=== PATIENT | male | born 1945 | race Caucasian/White ===

== ENCOUNTER 2019-08-18 14:36 | Day surgery (SDC) | payer MEDICARE, MEDICAID ==
[2019-08-18] MEDS ORDERED: ONDANSETRON HCL INJ/PF 4 MG/2 ML SDV ONE (15:54)
[2019-08-18] MEDS ORDERED: DIPHENHYDRAMINE HCL 50 MG/ML VIAL ONE (15:54)
[2019-08-18] MEDS ORDERED: FENTANYL CITRATE INJ/PF 100 MCG/2 ML AMPUL ONE (15:55)
[2019-08-18] MEDS ORDERED: EPINEPHRINE INJ 1 MG/10 ML DISP.SYRIN ONE (15:55)
[2019-08-18] MEDS ORDERED: NALOXONE HCL INJ/PF 0.4 MG/1 ML SDV ONE (15:55)
[2019-08-18] MEDS ORDERED: FLUMAZENIL INJ 0.5 MG/5 ML VIAL ONE (15:55)
[2019-08-18] MEDS ORDERED: GLUCAGON,HUMAN RECOMB 1 MG INJ ONE (15:55)
[2019-08-18] MEDS: MIDAZOLAM 2 MG/2 ML INJ ONE ×2 (16:39→16:47)
--- NOTE | 2019-08-18 17:07 | Operative Report ---
Operative Report DATE OF SURGERY: 08/18/19 Operative Report: Pre-op diagnosis: History of reflux and colon polyps Post-op diagnosis: 1. Antral gastritis 2. Sigmoid diverticulum 3. Limited view of the colon Surgery: Upper endoscopy with biopsy and Colonoscopy Medications: Versed 3mg, Fentanyl 100 Mcg IV push Tissue removed: Antral biopsy Procedure: After informed consent obtained from patient, patient's pharynx was sprayed with Hurricane and conscious sedation was achieved. The upper endoscope was then inserted into the esophagus under direct vision and advanced into the stomach and further into the duodenum. Detailed examination of the duodenum, stomach and the esophagus was then performed. A digital rectal examination was performed and this was unremarkable. The colonoscope was inserted into the rectum and advanced to the cecum. The appendiceal orifice and the terminal ileum were both identified. The mucosa was examined into details as the colonoscope was slowly pulled out of the patient. The endoscope was retroflexed in the rectum. Patient tolerated the procedure well. Findings Esophagus: Normal with the Z line at 40 cm Stomach: Mild erythema in the gastric antrum. Duodenum: Normal Cecum: Limited view due to retained stool Ascending colon: Normal Transverse colon: Normal Descending colon: Mildly limited view Sigmoid colon: Single diverticulum noted Rectum: Limited view. Internal hemorrhoids Plan: Repeat colonoscopy with better preparation OPERATION: .
[2019-08-18 18:02] VITALS: BP 116/63
== END 2019-08-18 17:50 | disposition home or self-care (01) ==
LOC: END 14:36
PROVIDERS: ATTEND Internal Medicine Gastroenterology
DX: Z12.11 Encounter for screening for malignant neoplasm of colon (principal); Z86.010 Personal history of colon polyps; K57.30 Diverticulosis of large intestine without perforation or abscess without bleeding; K29.50 Unspecified chronic gastritis without bleeding; K21.9 Gastro-esophageal reflux disease without esophagitis; I10 Essential (primary) hypertension; Z79.82 Long term (current) use of aspirin; Z79.899 Other long term (current) drug therapy; F79 Unspecified intellectual disabilities
CPT/HCPCS: 43239; 45378; 88342 ×2; 88305 ×2; J2250; J3010; J0171; J1200; J1610; J2310; J2405; J3490

== ENCOUNTER 2019-09-15 15:48 | Day surgery (SDC) | payer MEDICARE, MEDICAID ==
[~2019-09-15 15:48] MED LIST: DIPHENHYDRAMINE HCL 50 MG/ML VIAL ONE; EPINEPHRINE INJ 1 MG/10 ML DISP.SYRIN ONE; FLUMAZENIL INJ 0.5 MG/5 ML VIAL ONE; GLUCAGON,HUMAN RECOMB 1 MG INJ ONE; NALOXONE HCL INJ/PF 0.4 MG/1 ML SDV ONE; ONDANSETRON HCL INJ/PF 4 MG/2 ML SDV ONE
[2019-09-15] MEDS: MIDAZOLAM 2 MG/2 ML INJ ONE ×4 (17:20→17:29)
[2019-09-15] MEDS: FENTANYL CITRATE INJ/PF 100 MCG/2 ML AMPUL ONE ×2 (17:22→17:27)
--- NOTE | 2019-09-15 18:05 | Operative Report ---
Operative Report DATE OF SURGERY: 09/15/19 Operative Report: Pre-op diagnosis: Colon cancer screening and history of incomplete colonoscopy Post-op diagnosis: Sigmoid diverticulum and hemorrhoids Surgery: Colonoscopy Medications: Versed 3mg, Fentanyl 100 Mcg IV push Tissue removed: Procedure: After informed consent obtained from patient, conscious sedation was achieved. A digital rectal examination was performed and this was unremarkable. The colonoscope was inserted into the rectum and advanced to the cecum. The appendiceal orifice and the terminal ileum were both identified. The mucosa was examined into details as the colonoscope was slowly pulled out of the patient. The endoscope was retroflexed in the rectum. Patient tolerated the procedure well. Findings Cecum: Normal Ascending colon: Normal Transverse colon: Normal Descending colon: Normal Sigmoid colon: Single diverticulum noted Rectum: Normal except for internal hemorrhoids Plan: Repeat colonoscopy in 10 years OPERATION: .
[2019-09-15 18:51] VITALS: BP 110/68
== END 2019-09-15 19:11 | disposition home or self-care (01) ==
LOC: END 15:48
PROVIDERS: ATTEND Internal Medicine Gastroenterology
DX: Z12.11 Encounter for screening for malignant neoplasm of colon (principal); K57.30 Diverticulosis of large intestine without perforation or abscess without bleeding; K64.8 Other hemorrhoids; Z86.010 Personal history of colon polyps
CPT/HCPCS: G0105; J2250; J3010; 45378; J0171; J1200; J1610; J2310; J2405; J3490